=== PATIENT | female | born 1985 | race Hispanic/Latino ===

== ENCOUNTER 2017-01-17 12:19 | Emergency (ER) | payer SELFPAY ==
[2017-01-17] MEDS ORDERED: Bicillin LA 1.2 MILLION UNITS/2 ML SYRINGE ONE (12:59)
[2017-01-17] MEDS ORDERED: Ibuprofen 800 MG TAB ONE (12:59)
== END 2017-01-17 13:23 | disposition home or self-care (01) ==
LOC: NAV ERS 12:19
DX: J02.0 Streptococcal pharyngitis (principal)
CPT/HCPCS: 87430; 96372; J0561

== ENCOUNTER 2017-03-05 16:49 | Emergency (ER) | payer SELFPAY | END 2017-03-05 18:15 | disposition home or self-care (01) | LOC: NAV ERS 16:49 | DX: J10.1 Influenza due to other identified influenza virus with other respiratory manifestations (principal) | CPT/HCPCS: 99406 ==